=== PATIENT | female | born 1950 | race Caucasian/White ===

== ENCOUNTER → 2016-10-17 | Day surgery (SDC) | payer OTHER ==
[~2016-10-17] MED LIST: IV RINGERS,LACTATED 1000ML 1,000 ML IV SCH; LIDOCAINE 1% 1 ML SYRINGE. ID PRN; LIDOCAINE 2% PF Vial for OR 5 ML VIAL. ONE; MIDAZOLAM HCL/PF 2 MG/2 ML VIAL. IV PRN; PROPOFOL 20 ML IV ONE; fentaNYL PF VIAL 100 MCG/2 ML VIAL IV PRN
[2016-10-17 10:25] VITALS: BP 130/72
--- NOTE | 2016-10-18 14:53 | PATHOLOGY ---
PATHOLOGY REPORT * * * * * * * * FINAL DIAGNOSIS: A. Small bowel biopsy: - No significant pathologic abnormalities. B. Gastric biopsy, antrum: - Chronic gastritis, mild. C. Esophageal biopsy, distal esophagus: - Segments of hyperplastic squamous esophageal mucosa and esophagogastric mucosa showing active chronic inflammation. COMMENT: Sections of the small bowel biopsy reveal segments of duodenal mucosa. Where best oriented, the mucosal villi appear normal and show no sprue-like changes. Sections of the gastric biopsy reveal gastric antral/body transition mucosa showing congestion and mild chronic inflammation. There is a lymphoid aggregate present within the base of the mucosa. An immunoperoxidase stain for Helicobacter is obtained. No Helicobacter organisms are identified. Sections of the distal esophageal biopsy reveal segments of hyperplastic squamous esophageal mucosa and esophagogastric mucosa showing moderate active chronic inflammation. There are a few eosinophils focally present within the squamous epithelium. The findings are consistent with reflux. There is no evidence of Humphreys's change, dysplasia, or malignancy. (JPM:mgr; 10/18/2016) Special Stain Performed: Immunoperoxidase stain for Helicobacter (B1) REPORT ELECTRONICALLY SIGNED BY: Prasanth Rose M.D. DATE/TIME: 10/18/2016 14:53 * * * * * * * * GROSS PATHOLOGY: A. Received in formalin labeled "Kelly, Gianluca, small bowel," are multiple segments of peterson soft tissue measuring from 0.1 up to 0.3 cm in maximum dimension. The specimen is submitted entirely in cassette A1. B. Received in formalin labeled "gastric antrum," are two segments of peterson soft tissue measuring 0.2 and 0.3 cm in maximum dimension. The specimen is submitted entirely in cassette B1. C. Received in formalin labeled "distal esophagus," are multiple segments of peterson soft tissue measuring from less than 0.1 up to 0.3 cm in maximum dimension. The specimen is submitted entirely in cassette C1. (JPM; 10/17/16) INITIAL CPT CODE(S): A; 07022 B; 73824, 90132 C; 66006 Professional services performed by [facility] [address] [place] [id number] Technical services performed by [facility] at [address] [place] [address], [address], [place] [address]. SPECIMEN(S) RECEIVED: A.Small bowel biopsy B.Gastric antrum C.Distal esophagus CLINICAL HISTORY: Nausea, vomiting, dysphagia PATIENT: GIANLUCA KELLY /AGE: 305/19/1950 (Age: 66) PATIENT #: [id number] ALT CASE #: SPECIMEN COLLECTION DATE: 10/17/2016 SPECIMEN RECEIVED DATE: 10/17/2016 [facility] - [address] [place] [address] - PHONE: [phone] * * * END OF REPORT * * *
== END | disposition home or self-care (01) ==
LOC: ENDOS 08:24
PROVIDERS: ATTEND Internal Medicine Gastroenterology
DX: K21.0 Gastro-esophageal reflux disease with esophagitis (principal); E78.00 Pure hypercholesterolemia, unspecified; I10 Essential (primary) hypertension; Z90.710 Acquired absence of both cervix and uterus; Z91.011 Allergy to milk products; Z91.013 Allergy to seafood; Z91.048 Other nonmedicinal substance allergy status
CPT/HCPCS: 43239; 43450; J2704; 88305; 88342; J2001